=== PATIENT | female | born 1985 | race Caucasian/White ===

== ENCOUNTER 2024-08-03 12:27 | Emergency (ER) | payer OTHER ==
[~2024-08-03] VITALS: Ht 167.6 cm; Wt 67.7 kg
[2024-08-03 12:44] LABS: BASOPHILS 0.3 % (0-2); EOSINOPHILS 2.3 % (0-6); HEMATOCRIT 39.9 % (35.0-50.0); HEMOGLOBIN 13.5 g/dL (12.0-18.0); LYMPHOCYTES 33.2 % (24-44); MCH 31.3 (27-36); MCHC 33.9 g/dl (30-36); MCV 92.4 fl (81-99); MONOCYTES 8.8 % (0-12); NEUTROPHILS 55.4 % (39-80); PLATELET COUNT 233 K/uL (140-440); RBC 4.31 M/ul (4.3-5.7); RDW 13.3 (10.5-15.0)
[2024-08-03] MEDS ORDERED: KETOROLAC TROMETHAMINE 30 MG/ML VIAL IV ONE (12:45)
[2024-08-03 13:03] LABS: ALBUMIN 3.9 g/dL (3.4-5.0); ALBUMIN/GLOBULIN RATIO 1.15 (1.1-2.4); ALCOHOL, MEDICAL <3 ng/dL (<3); ALKALINE PHOSPHATASE 77 U/L (46-116); ALT (SGPT) 23 U/L (14-59); ANION GAP 15.4 (7-21); AST (SGOT) 14 U/L (15-37); BILIRUBIN, TOTAL 0.7 ng/dL (0.2-1.0); BUN/CREATININE RATIO 20.54 (6.0-28.6); CALCIUM 8.8 mg/dL (8.5-10.1); CARBON DIOXIDE 25 mmol/L (21-32); CHLORIDE 105 mmol/L (98-107); CREATININE, SERUM 0.73 mg/dL (0.55-1.02); GLOMERULAR FILTRATION RATE,EST 108 mL/min (>60); POTASSIUM 3.4 mmol/L (3.5-5.1); PROTEIN, TOTAL 7.3 g/dL (6.4-8.2); UREA NITROGEN 15 mg/dL (7-18)
[2024-08-03 13:35] VITALS: BP 123/70
== END 2024-08-03 13:35 | disposition home or self-care (01) ==
LOC: ED 12:27
PROVIDERS: Emergency Medicine
DX: S20.214A Contusion of middle front wall of thorax, initial encounter (principal); S00.83XA Contusion of other part of head, initial encounter; V68.5XXA Driver of heavy transport vehicle injured in noncollision transport accident in traffic accident, initial encounter
CPT/HCPCS: 36415; 71045; 80053; 84702; 85025; 96374; 99284-25; G0480; J1885